=== PATIENT | female | born 2000 | race Two or more races ===

== ENCOUNTER 2021-01-30 04:53 | Emergency (ER) | payer OTHER ==
[~2021-01-30] VITALS: Ht 157.5 cm; Wt 68.0 kg
[2021-01-30 06:41] VITALS: BP 143/86
[2021-01-30] MEDS ORDERED: IBUPROFEN 800 MG TAB PO ONE (06:45)
== END 2021-01-30 07:45 | disposition home or self-care (01) ==
LOC: ER 04:53 → EDBD 04:53 → ER 07:45
DX: S53.401A Unspecified sprain of right elbow, initial encounter (principal); S80.02XA Contusion of left knee, initial encounter; V47.5XXA Car driver injured in collision with fixed or stationary object in traffic accident, initial encounter; Y93.89 Activity, other specified; Y92.89 Other specified places as the place of occurrence of the external cause; Y99.8 Other external cause status
CPT/HCPCS: 73080; 73562

== ENCOUNTER 2024-02-11 22:28 | Emergency (ER) | payer OTHER ==
[~2024-02-11] VITALS: Ht 157.5 cm; Wt 71.2 kg
[2024-02-11 23:05] LABS: Urine Bacteria None Seen /hpf (None Seen); Urine WBC None Seen /hpf (0 - 5)
[2024-02-11 23:11] LABS: Urine Blood Negative /uL (Negative); Urine Clarity Clear (Clear); Urine Color Light-Yellow (Yellow); Urine Protein, UAD TRACE (Negative); Urine Specific Gravity 1.029 (1.001-1.035); Urine Urobilinogen Normal (Negative); Urine pH 7.5 (5.0-9.0)
[2024-02-11 23:41] LABS: Anion Gap 6 (5-15); Carbon Dioxide 26 mmol/L (20-30); Chloride 108 mmol/L (98-107); Potassium 3.5 mmol/L (3.5-5.1); Sodium 140 mmol/L (136-145)
[2024-02-11 23:42] LABS: Calcium 9.6 mg/dL (8.7-10.4)
[2024-02-11 23:43] LABS: Basophils # (auto) 0.1 10 ^3/uL (0-0.2); Basophils % (auto) 0.6 % (0.0-2.0); Eosinophils # (auto) 0.2 10 ^3/uL (0-0.8); Eosinophils % (auto) 1.6 % (0.0-7.0); Hematocrit 41.2 % (36.0-46.0); Hemoglobin 14.3 g/dL (12.2-16.2); Lymphocytes # (auto) 3.3 10 ^3/uL (0.4-5.4); Lymphocytes % (auto) 31.4 % (10.0-50.0); Mean Corpuscular Hgb Conc. 34.7 g/dL (32.0-36.0); Mean Corpuscular Volume 86.4 fL (80.0-100.0); Monocytes # (auto) 0.8 10 ^3/uL (0-1.3); Monocytes % (auto) 7.5 % (0.0-12.0); Neutrophils # (auto) 6.3 10 ^3/uL (1.6-8.6); Neutrophils % (auto) 58.9 % (37.0-80.0); Nucleated Red Blood Cells % 0.1 %; Red Blood Cells 4.77 10^6/uL (4.0-5.20); Red Cell Distribution Width 13.2 % (11.8-14.3); White Blood Cell 10.6 10^3/uL (4.4-10.8)
[2024-02-11 23:47] LABS: BUN/Creatinine Ratio 12.3 (10.0-20.0); Blood Urea Nitrogen 9 mg/dL (9-23); Glucose 92 mg/dL (74-106); Lipase 43 U/L (12-53)
[2024-02-12] MEDS ORDERED: IBUP-1454 PO (01:13)
[2024-02-12] MEDS ORDERED: ACET500T58 PO (01:13)
[2024-02-12] MEDS ORDERED: ZOFR4T PO (01:13)
[2024-02-12 04:00] VITALS: BP 123/61; PULSE 65; RESP 16; O2SAT 98
[2024-02-12] MEDS: HYDROcodone-ACET 5/325MG TAB PO ONE (04:00)
== END 2024-02-12 04:02 | disposition home or self-care (01) ==
LOC: ER 22:28
DX: N83.201 Unspecified ovarian cyst, right side (principal); N83.202 Unspecified ovarian cyst, left side; R10.2 Pelvic and perineal pain; Z79.1 Long term (current) use of non-steroidal anti-inflammatories (NSAID); Z79.899 Other long term (current) drug therapy
CPT/HCPCS: 36415; 74176; 80048; 81001; 83690; 84702; 85025